=== PATIENT | female | born 2000 | race Two or more races ===

== ENCOUNTER 2020-12-12 01:02 | Emergency (ER) | payer MEDICAID, OTHER ==
[~2020-12-12] VITALS: Ht 157.5 cm; Wt 94.8 kg
[2020-12-12 02:05] VITALS: BP 151/93
== END 2020-12-12 02:53 | disposition home or self-care (01) ==
LOC: ER 01:07
DX: M54.6 Pain in thoracic spine (principal); I10 Essential (primary) hypertension
CPT/HCPCS: 72074-TC

== ENCOUNTER 2021-02-24 00:42 | Emergency (ER) | payer OTHER ==
[~2021-02-24] VITALS: Ht 160 cm; Wt 95.7 kg
--- NOTE | 2021-02-24 01:00 | NUR ---
PT BIBM[facility] C/P CP & BACKPAIN STARTING 1644. TOOK MOTRIN 100MG WITH RELIEF. CP NOW 07/25. PT A/OX 4; TOLERATING R/A WELL. MOM AT BEDSIDE & FULL VACCINATED. CONNTECT PT TO POX AND TELE MONITOR
[2021-02-24] MEDS ORDERED: ACETAMINOPHEN ES 500 MG TABLET ONE (01:23)
[2021-02-24] MEDS ORDERED: IBUPROFEN 600 MG TABLET ONE ×2 (01:24→01:25)
[2021-02-24] MEDS ORDERED: ACETAMINOPHEN ES 500 MG TABLET PO ONE (01:30)
[2021-02-24] MEDS ORDERED: IBUPROFEN 600 MG TABLET PO ONE (01:30)
[2021-02-24 01:56] VITALS: BP 128/84
== END 2021-02-24 01:57 | disposition home or self-care (01) ==
LOC: ER 00:44
DX: M54.6 Pain in thoracic spine (principal); I10 Essential (primary) hypertension
CPT/HCPCS: 71045-TC